=== PATIENT | female | born 1985 | race Caucasian/White ===

== ENCOUNTER 2023-11-28 07:52 | Day surgery (SDC) | payer BC ==
[2023-11-26 13:25] VITALS: BP 128/82
[~2023-11-28] VITALS: Ht 172.7 cm; Wt 93.2 kg
[~2023-11-28 07:52] MED LIST: CLINDAMYCIN PHOSPHATE/D5W 600 MG/50 ML BAG IV SCH; HEParin SOD (PORCINE) 5,000 UNIT/0.5 ML SYR SUB-Q SCH; IBLOOD GLUCOSE TEST STRIP 1 EA TEST VI PRN; LACTATED RINGER'S 1,000 ML IV SCH; LIDOCAINE HCL 1% 5 ML SDV INJ ONE; LISINOPRIL-HCT1 EAC1 PO; LISINOPRIL20 MG PO; METOPROLOL TART25 MG PO; SODIUM CHLORIDE 0.9% 40 ML IV ONE; iopamidoL 30 ML VIAL ONE
[2023-11-28 08:07] VITALS: BP 131/89
[2023-11-28] MEDS ORDERED: WOMEN'S DAILY1 EACH PO (08:10)
[2023-11-28] MEDS ORDERED: VITAMIN B-12100 MCG PO (08:11)
[2023-11-28] MEDS ORDERED: fentaNYL citrate 100 MCG/2 ML VIAL ONE (08:41)
[2023-11-28] MEDS ORDERED: MIDAZOLAM HCL 2 MG/2 ML VIAL ONE (08:41)
[2023-11-28] MEDS ORDERED: DEXAMETHASONE SOD PHOS 4 MG/ML VIAL ONE (08:42)
[2023-11-28] MEDS ORDERED: ondansetron HCL 4 MG/2 ML VIAL ONE (08:42)
[2023-11-28] MEDS ORDERED: propofoL 200 MG/20 ML VIAL ONE (08:42)
[2023-11-28] MEDS ORDERED: KETOROLAC TROMETHAMINE 30 MG/ML VIAL ONE (08:42)
[2023-11-28] MEDS ORDERED: dexmedeTOMIDine HCl 200 MCG/2 ML VIAL ONE (08:42)
[2023-11-28] MEDS ORDERED: ACETAMINOPHEN 1,000 MG/100 ML VIAL ONE (08:43)
[2023-11-28] MEDS ORDERED: ROCURONIUM BROMIDE 50 MG/5 ML SYR ONE ×2 (08:43→10:28)
[2023-11-28] MEDS ORDERED: LIDOCAINE HCL 1% 30 ML SDV ONE (08:43)
[2023-11-28] MEDS ORDERED: SEVOFLURANE 250 ML BTL INH ONE (09:00)
[2023-11-28] MEDS ORDERED: HYDROmorphone HCL 1 MG/ML SYR IV PRN (09:30)
[2023-11-28] MEDS ORDERED: ondansetron HCL 4 MG/2 ML VIAL IV PRN (09:30)
[2023-11-28] MEDS ORDERED: MIDAZOLAM HCL 2 MG/2 ML VIAL IV PRN (09:30)
[2023-11-28] MEDS ORDERED: NALOXONE HCL 0.4 MG SYR IV PRN ×2 (09:30→11:15)
[2023-11-28] MEDS ORDERED: fentaNYL citrate 50 MCG/ML SDV IV PRN (09:30)
[2023-11-28] MEDS ORDERED: IBLOOD GLUCOSE TEST STRIP 1 EA TEST VI PRN (09:30)
[2023-11-28] MEDS ORDERED: HYDROmorphone HCL 2 MG/ML VIAL ONE (10:15)
[2023-11-28] MEDS ORDERED: MORPHINE SULFATE 1 MG/ML VIAL ONE (10:17)
[2023-11-28] MEDS ORDERED: ESMOLOL HCL 100 MG/10 ML VIAL IV ONE (10:28)
[2023-11-28] MEDS ORDERED: LACTATED RINGER'S 1,000 ML IV ONE (10:38)
[2023-11-28] MEDS ORDERED: SUGAMMADEX SODIUM 200 MG/2 ML ML ONE (10:38)
[2023-11-28] MEDS ORDERED: OXYCODON-ACETA1 EAC2 PO (11:07)
[2023-11-28] MEDS ORDERED: IBUPROFEN600 MG PO (11:07)
[2023-11-28] MEDS ORDERED: ACETAMINOPHEN500 MG PO (11:07)
[2023-11-28] MEDS ORDERED: OXYCODONE/APAP 7.5/325 TAB PO PRN (11:15)
[2023-11-28] MEDS ORDERED: LACTATED RINGER'S 1,000 ML IV SCH (11:15)
[2023-11-28] MEDS ORDERED: IBUPROFEN 600 MG TAB PO PRN (11:15)
[2023-11-28] MEDS ORDERED: ACETAMINOPHEN 500 MG TAB PO PRN (11:15)
[2023-11-28 11:49] VITALS: BP 108/69
[2023-11-28 12:50] VITALS: BP 123/82
--- NOTE | 2023-12-01 14:27 | OR ---
[facility] [address], [place] [address] Signed DATE OF OPERATION: 11/28/2023 SURGEON: Dane Cardoza MD PREOPERATIVE DIAGNOSIS: Chronic calculous cholecystitis. POSTOPERATIVE DIAGNOSIS: Chronic calculous cholecystitis. PROCEDURES: 1. Laparoscopic cholecystectomy with intraoperative cholangiograms. 2. Surgeon-directed fluoroscopy. ANESTHESIA: General endotracheal, Tahmina Roerson [employer] and local 10 mL of 0.25% Marcaine with epinephrine. INDICATION: This 38-year-old white woman is a patient of Jefe Allen. During , she had a fair amount of right upper abdominal pain. She underwent evaluation of ultrasound under the direction of Jefe Allen, which confirmed a large gallstone at least 4 cm in size. She has had low-grade right upper abdominal pain since October. She is admitted at this time to undergo cholecystectomy for chronic calculous cholecystitis. She understands the risk of bleeding, infection, bile duct injury, need for open procedure and of course failure to cure her symptoms. Understanding that she wished to proceed. FINDINGS: Gallbladder was chronically inflamed, but not tensely dilated or acutely inflamed. The liver was normal. Cholecystectomy confirmed a single large gallstone wedged in the infundibulum of the gallbladder. Cholangiogram was normal. The liver was normal. DESCRIPTION OF PROCEDURE: The patient was brought to the operating room, given a general endotracheal anesthetic. Perioperative antibiotic of clindamycin was given as she is allergic to Ancef. Sequential compression device stockings used and heparin subcutaneously administered. The abdomen was prepared with a chlorhexidine solution and draped sterilely. An infraumbilical incision was made and using an open Daniel cannula technique pneumoperitoneum was achieved to a level of 14 mmHg of carbon dioxide gas. Electronically Signed By: DANE CARDOZA MD 12/01/23 1427 PATIENT NAME: DANA BUSH OPERATIVE REPORT DATE OF : 83 REPORT #: [id number] PHYSICIAN: DANE CARDOZA MD PCP: JEFE ALLEN PA-C REPORT IS CONFIDENTIAL AND NOT TO BE RELEASED WITHOUT AUTHORIZATION [facility] [address], [place] [address] Signed Intra-abdominal inspection showed no sign of ascites or carcinomatosis. The gallbladder was obscured from view initially. Three additional trocars were placed in usual configuration in the subxiphoid, right midclavicular, and right anterior axillary line. Gallbladder was elevated cephalad and retracted laterally and using blunt electrocautery dissection the triangle of Calot was dissected free. The cystic duct was moderate in size. There were two dominant cystic arterial branches to the gallbladder itself. They were clipped. Once the critical view of safety was affirmed, a clip was applied across gallbladder cystic duct junction and a transverse choledochotomy made the cystic duct. Egress of clear bile was noted. Using an Oseguera type cholangiocatheter intraoperative cholangiography was undertaken showing free flow of contrast into the biliary tree with emptying into the duodenum. Retrograde flow into the more proximal biliary tree was also noted. The catheter was removed. The cystic duct was triply clipped and divided. The gallbladder dissected free in a retrograde fashion using electrocautery. Gallbladder was placed in an endobag and extracted through the infraumbilical port site without problem. Gallbladder was opened on the back table showing a large oblong smooth gallstone and no sign of neoplasm. Gall stone was approximately 4 cm. Irrigation was undertaken in the subhepatic space. As there did appear to be a fair amount of dissection, some Martha hemostatic agent was applied to the site. Excess irrigation fluid was suctioned free. The trocars removed under direct visualization showing no sign of bleeding. Plans were then made for closure. The infraumbilical incision was reapproximated with interrupted 0 Vicryl suture. 10 mL of 0.25% Marcaine with epinephrine was injected locally. The skin was then closed with interrupted 3-0 Vicryl. Steri-Strips were applied. The patient was ultimately extubated, anticipating transfer to the recovery room in good condition. Sponge, needle, and instrument counts were reported as correct x3. Dane Cardoza MD JM/MODL /[id number] Electronically Signed By: DANE CARDOZA MD 12/01/23 1427 PATIENT NAME: DNAA BUSH OPERATIVE REPORT DATE OF : 83 REPORT #: [id number] PHYSICIAN: DANE CARDOZA MD PCP: JEFE ALLEN PA-C REPORT IS CONFIDENTIAL AND NOT TO BE RELEASED WITHOUT AUTHORIZATION [address] [address] Signed cc: EMILY Mejia Copies: ~ Electronically Signed By: DANE CARDOZA MD 12/01/23 1427 PATIENT NAME: DANA BUSH OPERATIVE REPORT DATE OF : 83 REPORT #: [id number] PHYSICIAN: DANE CARDOZA MD PCP: JEFE ALLEN PA-C REPORT IS CONFIDENTIAL AND NOT TO BE RELEASED WITHOUT AUTHORIZATION
--- NOTE | 2023-12-02 17:36 | PATH ---
[facility] [address], [place] [address] Signed SPECIMEN(S): A GALLBLADDER SPECIMEN SOURCE: A. GALLBLADDER CLINICAL HISTORY: Chronic cholecystitis FINAL PATHOLOGIC DIAGNOSIS: Gallbladder, cholecystectomy: - Chronic calculous cholecystitis. JVR:efraín MICROSCOPIC EXAMINATION: Histologic sections of all submitted blocks are examined by light microscopy. These findings, together with the gross examination, support the pathologic diagnosis. GROSS DESCRIPTION: The specimen, labeled and designated "Vinicio, S, gallbladder," is received in formalin and consists of Specimen: Previously open gallbladder. Dimensions: 8.5 x 2.8 x 1.9 cm. Serosa: Bluegray congested smooth and glistening. Cystic Duct: Unobstructed. Calculi: Single yellow-brown calculus measuring 3.9 x 2.5 x 2.5 cm. Mucosa: Brown velvety. Wall thickness: 0.5 cm. Lymph node: No pericystic lymph nodes are grossly identified. Additional: Dark brown thickened bile. Music Historian sections are submitted in (A1). ANDREW (under the direct supervision of a pathologist) The Gross Description was prepared using a voice recognition system. The report was reviewed for accuracy; however, sound-alike word errors, addition and/or deletions may occur. If there is any question about this report, please contact Client Services. PERFORMING LABORATORY: Technical component was performed by [facility], [address] [place] [id number] (CLIA# [id number]). Professional interpretation was performed by [facility] - [place] [facility], [facility] PATIENT NAME: DANA BUSH PATHOLOGY DATE OF : 83 REPORT #: [id number] PHYSICIAN: MEGAN YOON PCP: JEFE IBARRA PA-C REPORT IS CONFIDENTIAL AND NOT TO BE RELEASED WITHOUT AUTHORIZATION [address] [address] [address], [place] [address] (CLIA#: [id number]). Diagnostician: Richard Rios MD Pathologist Electronically Signed 12/02/2023 Copies: ~ PATIENT NAME: DANA BUSH PATHOLOGY DATE OF : 83 REPORT #: [id number] PHYSICIAN: MEGAN YOON PCP: JEFE IBARRA PA-C REPORT IS CONFIDENTIAL AND NOT TO BE RELEASED WITHOUT AUTHORIZATION
== END 2023-11-28 13:15 | disposition home or self-care (01) ==
LOC: DS 07:52
PROVIDERS: ATTEND Surgery
PROC: 0FT44ZZ Resection of Gallbladder, Percutaneous Endoscopic Approach (ICD-10-PCS; principal; 2023-11-28 09:00)
DX: K81.1 Chronic cholecystitis (principal); F17.200 Nicotine dependence, unspecified, uncomplicated; E66.9 Obesity, unspecified; I10 Essential (primary) hypertension; Z79.899 Other long term (current) drug therapy; Z88.8 Allergy status to other drugs, medicaments and biological substances; Z68.31 Body mass index [BMI] 31.0-31.9, adult
CPT/HCPCS: 00790; 74300; J0131; J1100; J1644; J1885; J2250; J2274; J2405; J2704; J3010; J3490; J7121; Q9967